=== PATIENT | female | born 2000 | race Hispanic/Latino ===

== ENCOUNTER 2023-08-24 18:16 | Inpatient (IN) | payer OTHER, SELFPAY ==
--- OUTSIDE RECORDS SUMMARY | 2023-08-24 18:19 | XMS REPORT | Continuity of Care Document ---
:2000 Author Organization [facility] t Address [address] [place] [address] Care Team Providers Name Role Phone Ton ELLIOTT, [facility] Primary Care Physician [phone] Problems This patient has no known problems. Allergies, Adverse Reactions, Alerts This patient has no known allergies or adverse reactions. Medications Ordered Filled Start Stop Current Ordering Indication Dosage Frequency Signature Comments Components Source Medication Medication Date Date Medication? Clinician (SIG) Name Name Dose 2021-0 No Unknown 2-14 00:00: 00 mupirocin 2 2020-0 No 1% % topical 8-30 ointment 00:00: 00 Augmentin 2020-0 No 1mg 875 mg-125 8-30 mg tablet 00:00: 00 Flagyl 500 2020-0 No 1mg mg tablet 5-03 00:00: 00 Flagyl 500 2019-0 No 1mg mg tablet 9-15 00:00: 00 metronidazo 2020-0 No 1mg le 500 mg 7-01 tablet 00:00: 00 Dose 2019-0 No Unknown 8-19 00:00: 00 Macrobid 2019-0 No 1mg 100 mg 8-06 capsule 00:00: 00 Vital Signs Vital Name Observation Time Observation Value Comments Source BP Systolic 2022-07-15 09:58:00 121 mm[Hg] BP Diastolic 2022-07-15 09:58:00 77 mm[Hg] Weight Measured 2022-07-15 09:58:00 168.80 pounds Height Measured 2022-07-15 09:58:00 60.71 inches Body Temperature 2022-07-15 09:58:00 98.30 degrees Heart Rate 2022-07-15 09:58:00 86.00 /min Respiratory Rate 2022-07-15 09:58:00 18.00 /min BP Systolic 2021-11-20 17:01:00 120 mm[Hg] BP Diastolic 2021-11-20 17:01:00 72 mm[Hg] Weight Measured 2021-11-20 17:01:00 161.40 pounds Height Measured 2021-11-20 17:01:00 60.71 inches Body Temperature 2021-11-20 17:01:00 98.30 degrees Heart Rate 2021-11-20 17:01:00 74.00 /min Respiratory Rate 2021-11-20 17:01:00 16.00 /min BP Systolic 2021-11-20 16:51:00 120 mm[Hg] BP Diastolic 2021-11-20 16:51:00 72 mm[Hg] Weight Measured 2021-11-20 16:51:00 161.40 pounds Height Measured 2021-11-20 16:51:00 60.71 inches Body Temperature 2021-11-20 16:51:00 98.30 degrees Heart Rate 2021-11-20 16:51:00 74.00 /min Respiratory Rate 2021-11-20 16:51:00 16.00 /min BP Systolic 2021-07-11 11:28:00 120 mm[Hg] BP Diastolic 2021-07-11 11:28:00 71 mm[Hg] Weight Measured 2021-07-11 11:28:00 161.20 pounds Height Measured 2021-07-11 11:28:00 60.71 inches Body Temperature 2021-07-11 11:28:00 98.20 degrees Heart Rate 2021-07-11 11:28:00 77.00 /min Respiratory Rate 2021-07-11 11:28:00 21.00 /min BP Systolic 2021-06-09 14:31:00 121 mm[Hg] BP Diastolic 2021-06-09 14:31:00 65 mm[Hg] Weight Measured 2021-06-09 14:31:00 158.60 pounds Height Measured 2021-06-09 14:31:00 60.71 inches Body Temperature 2021-06-09 14:31:00 98.20 degrees Heart Rate 2021-06-09 14:31:00 69.00 /min Respiratory Rate 2021-06-09 14:31:00 BP Systolic 2021-02-06 14:20:00 119 mm[Hg] BP Diastolic 2021-02-06 14:20:00 77 mm[Hg] Weight Measured 2021-02-06 14:20:00 160.60 pounds Height Measured 2021-02-06 14:20:00 60.71 inches Body Temperature 2021-02-06 14:20:00 98.40 degrees Heart Rate 2021-02-06 14:20:00 76.00 /min Respiratory Rate 2021-02-06 14:20:00 17.00 /min BP Systolic 2020-10-21 13:30:00 102 mm[Hg] BP Diastolic 2020-10-21 13:30:00 65 mm[Hg] Weight Measured 2020-10-21 13:30:00 162.80 pounds Height Measured 2020-10-21 13:30:00 60.71 inches Body Temperature 2020-10-21 13:30:00 99.80 degrees Heart Rate 2020-10-21 13:30:00 87.00 /min Respiratory Rate 2020-10-21 13:30:00 BP Systolic 2020-07-16 16:24:00 124 mm[Hg] BP Diastolic 2020-07-16 16:24:00 73 mm[Hg] Weight Measured 2020-07-16 16:24:00 167.80 pounds Height Measured 2020-07-16 16:24:00 60.71 inches Body Temperature 2020-07-16 16:24:00 98.40 degrees Heart Rate 2020-07-16 16:24:00 88.00 /min Respiratory Rate 2020-07-16 16:24:00 16.00 /min BP Systolic 2020-06-25 11:02:00 127 mm[Hg] BP Diastolic 2020-06-25 11:02:00 75 mm[Hg] Weight Measured 2020-06-25 11:02:00 167.20 pounds Height Measured 2020-06-25 11:02:00 60.71 inches Body Temperature 2020-06-25 11:02:00 98.80 degrees Heart Rate 2020-06-25 11:02:00 81.00 /min Respiratory Rate 2020-06-25 11:02:00 16.00 /min Body Temperature 2020-05-13 17:41:00 98.30 degrees Heart Rate 2020-05-13 17:41:00 82.00 /min Respiratory Rate 2020-05-13 17:41:00 16.00 /min BP Systolic 2020-05-13 17:41:00 117 mm[Hg] BP Diastolic 2020-05-13 17:41:00 79 mm[Hg] Weight Measured 2020-05-13 17:41:00 162.40 pounds Height Measured 2020-05-13 17:41:00 60.71 inches Procedures This patient has no known procedures. Plan of Care Planned Activity Planned Date Details Comments Source Goal Plan of Care Note [code = 25407-7] Goal Plan of Care Note [code = 53791-3] Goal Plan of Care Note [code = 00741-1] Goal Plan of Care Note [code = 22353-3] Goal Plan of Care Note [code = 45094-5] Goal Plan of Care Note [code = 55614-4] Goal Plan of Care Note [code = 02233-7] Goal Plan of Care Note [code = 97474-4] Goal Plan of Care Note [code = 89467-6] Goal Plan of Care Note [code = 75270-2] Goal Plan of Care Note [code = 91724-1] Goal Plan of Care Note [code = 28534-5] Goal Plan of Care Note [code = 83668-7] Goal Plan of Care Note [code = 72781-5] Goal Plan of Care Note [code = 79618-7] Goal Plan of Care Note [code = 47739-2] Encounters Start End Encounter Admission Attending Care Care Encounter Source Date/Time Date/Time Type Type Clinicians Facility Department ID 2023-08-23 2023-08-23 Outpatient SFA SFA [id number] Minor 09:09:55 09:09:55 1113 F Shawn 2023-06-09 2023-06-09 Outpatient SFA SFA [id number] Minor 09:16:44 09:16:44 0830 F Shawn 2022-11-06 2022-11-06 Outpatient SFA SFA [id number] Minor 10:42:01 10:42:01 0127 F Shawn 2022-07-15 2022-07-15 Outpatient SFA SFA [id number] Minor 09:34:26 09:34:26 1005 F [place] 2022-07-15 2022-07-15 Outpatient [id number] 00:00:00 00:00:00 Visit [id number] Results Test Description Test Time Test Comments Results Result Comments Source VAGINAL PATHOGENS DNA PANEL 2022-11-07 14:55:18 Test Item Value Reference Range Interpretation Comme nts LISA SPECIES (test code NEGATIVE NEGATIVE = ) G. VAGINALIS (test code = POSITIVE NEGATIVE A ) T. VAGINALIS (test code = NEGATIVE NEGATIVE N ote: The BD Affirm VPIII Microbial ) Identification Testis a DNA probe test intended for e in the detectionand identification of Lisa species, Gardnerellavagi nalis and Trichomonas vaginalis nucle ic acid. UNLESS OTHERWISE INDIC ATED, ALL TESTING PERFORMED [facility] PATHOLOGY [facility], [facility]. [address] [place] [address] 4 MARINE TECHNICIAN: QIANA NEAL M.D. CLIA NUMBER [id number] [facility] [place]. [id number] VAGINAL PATHOGENS DNA [id number] 18:33:54 Test Item Value Reference Range Interpretation Comments LISA SPECIES (test NEGATIVE NEGATIVE code = ) G. VAGINALIS (test NEGATIVE NEGATIVE code = ) T. VAGINALIS (test NEGATIVE NEGATIVE UNLESS O THERWISE code = ) INDICATED, ALL TESTING PERFORMED [facility] PATHOLOGY [facility], [place] [address] 4 LABORATORY DIRE CTOR: QIANA NEAL M.D. CLIA NUMBER [id number] [facility] [place] [id number] PAP TEST, THINPREP, [id number] 14:43:17 Test Item Value Reference Range Interpretation Comments SOURCE: (test Cervical/Endo code = 8001) cervical SLIDES: (test 1 code = 8011) LMP: (test code = 2020 80) SPECIMEN (NOTE) Satisfactory f or ADEQUACY: (test evaluation. Endocervical code = 07137) cells/transfor mation zone component present. INTERPRETATION: NILM/NO (test code = EPITH. --------- 01967) ABNORMALITY;S -------- EE BELOW NEGATIVE FO R INTRAEPITHELIAL LESION OR MALIGNANCY ( NILM) --------- --------- --------- - SOCIAL HUMAN SERVICES ASSISTANTS: Socorro Mckeon (test code = Sanchez,CT(ASCP) 8101) IAC LOCATION: (test (NOTE) Specimens pr ocessed and code = 08648) [facility] [address] [place] [address], , CLIA: [id number] CPT: (test code = (NOTE) 18187 UNLE SS OTHERWISE 8140) INDICATED, COMP UTER AIDED AND CYTOTECHNOLOGIS T SCREENING PERFO RMED. The Pap test is a s creening test with an in herent, but low probabi lity of error. Your pat ient should be remin ded to consult you imm ediately if she experien paula any suspicious sig ns or symptoms, regar dless of her Pap test re sult. An alternate repor t format containing imag es or consolidated pr ior Pap history is mj stanley as applicable. HPV HIGH IF ABNORMAL [id number] 14:43:17 Test Item Value Reference Range Interpretation Comments HPV HIGH IF CRITERIA NOT MET UNLESS OTH ERWISE ABNORMAL THINPREP INDICATED, ALL (test code = TEST[place] [address]) ATCLINICAL PATH [facility], [facility]. [address] [place] [address] [facility] DIRECTOR: QIANA MYRICK M.D. CLIA NUMBER [id number] CAP ACCREDITATION N O. [id number] 03:40:30 Test Item Value Reference Range Interpretation Comments RPR RESULT (test code = NON-REACTIVE NON-REACTIVE 3501) RPR TITER (test code = 3500) NOT INDIC. TITER NOT INDIC. HIV 1/2 4TH GEN, RFLX [id number] 03:14:02 Test Item Value Reference Range Interpretation Comments HIV 1/2 4TH GEN, RFLX CONF (test NON-REACTIVE NON-REACTIVE code = 3514) HEPATITIS PANEL, [id number] 03:14:02 Test Item Value Reference Range Interpretation Comments HEPATITIS A IgM (test NON-REACTIVE NON-REACTIVE code = 79332) HEPATITIS B CORE IgM NON-REACTIVE NON-REACTIVE (test code = 4644) HEPATITIS B SURF AG NON-REACTIVE NON-REACTIVE (test code = 2739) HEPATITIS C ANTIBODY NON-REACTIVE NON-REACTIVE (test code = 4675) INTERPRETATION (NOTE) Hepatitis A HEPATITIS A: (test serology shows no code = 2552) evidence of acu te hepatitis A. INTERPRETATION (NOTE) Hepatitis B HEPATITIS B: (test serology shows no code = 17029) evidence of ac sleetmute hepatitis B and no indication of exposure to hepatitis B vir us in the previous si xto eight months. INTERPRETATION (NOTE) Hepatitis C HEPATITIS C: (test serology shows no code = 07653) evidence of ex posure to hepatitisC v irus at this time. I t can take up to 12 m onths after exposure tothe hepatitis C vir us for antibodies to become detectab le in the blood in ce rtain patients. UNLES S OTHERWISE INDIC ATED, ALL TESTING PERFORMED [facility] PATHOLOGY LABORATORIES, [facility] [address] [place] [id number] [place] [address] DIRECTOR: QIANA MYRICK M.D. CLIA NUMBER [id number] [place] [id number] VAGINAL PATHOGENS DNA [id number] 16:16:30 Test Item Value Reference Range Interpretation Comments LISA SPECIES (test NEGATIVE NEGATIVE code = ) G. VAGINALIS (test POSITIVE NEGATIVE A code = ) T. VAGINALIS (test NEGATIVE NEGATIVE UNLESS O THERWISE code = ) INDICATED, ALL TESTING PERFORMED [facility], [facility]. [address] [place] [address] 4 LABORATORY DIRE CTOR: QIANA NEAL M.D. CLIA NUMBER [id number] CAP ACCREDITATI ON [place]. VAGINAL PATHOGENS DNA [id number] 00:00:00 Test Item Value Reference Range Interpretation Comments LISA SPECIES (test code = ) NEGATIVE G. VAGINALIS (test code = 73017) POSITIVE T. VAGINALIS (test code = ) NEGATIVE VAGINAL PATHOGENS DNA [id number] 00:00:00 Test Item Value Reference Range Interpretation Comments LISA SPECIES (test code = ) NEGATIVE G. VAGINALIS (test code = 39466) POSITIVE T. VAGINALIS (test code = 37232) NEGATIVE VAGINAL PATHOGENS DNA [id number] 00:00:00 Test Item Value Reference Range Interpretation Comments LISA SPECIES (test code = ) NEGATIVE G. VAGINALIS (test code = 83284) POSITIVE T. VAGINALIS (test code = 04987) NEGATIVE VAGINAL PATHOGENS DNA [id number] 00:00:00 Test Item Value Reference Range Interpretation Comments LISA SPECIES (test code = ) NEGATIVE G. VAGINALIS (test code = 31433) POSITIVE T. VAGINALIS (test code = 70146) NEGATIVE HEMOGLOBIN [id number] 00:00:00 Test Item Value Reference Range Interpretation Comments HEMOGLOBIN A1c (test code = 54111) 5.4 % HEMOGLOBIN [id number] 00:00:00 Test Item Value Reference Range Interpretation Comments HEMOGLOBIN A1c (test code = 33129) 5.4 % HEMOGLOBIN [id number] 00:00:00 Test Item Value Reference Range Interpretation Comments HEMOGLOBIN A1c (test code = 23447) 5.4 % CBC W/AUTO [id number] 00:00:00 Test Item Value Reference Range Interpretation Comments WBC (test code = 1001) 9.5 K/UL RBC (test code = 1002) 4.63 M/UL HEMOGLOBIN (test code = 1003) 13.7 G/DL HEMATOCRIT (test code = 1004) 39.9 % MCV (test code = 1005) 86.2 fL MCH (test code = 1006) 29.6 PG MCHC (test code = 1007) 34.3 G/DL RDW (test code = 1038) 12.7 % NEUTROPHILS (test code = 1008) 55.2 % LYMPHOCYTES (test code = 1010) 37.5 % MONOCYTES (test code = 1011) 6.3 % EOSINOPHILS (test code = 1012) 0.3 % BASOPHILS (test code = 1013) 0.7 % PLATELET COUNT (test code = 1015) 217 K/UL CBC W/AUTO [id number] 00:00:00 Test Item Value Reference Range Interpretation Comments WBC (test code = 1001) 9.5 K/UL RBC (test code = 1002) 4.63 M/UL HEMOGLOBIN (test code = 1003) 13.7 G/DL HEMATOCRIT (test code = 1004) 39.9 % MCV (test code = 1005) 86.2 fL MCH (test code = 1006) 29.6 PG MCHC (test code = 1007) 34.3 G/DL RDW (test code = 1038) 12.7 % NEUTROPHILS (test code = 1008) 55.2 % LYMPHOCYTES (test code = 1010) 37.5 % MONOCYTES (test code = 1011) 6.3 % EOSINOPHILS (test code = 1012) 0.3 % BASOPHILS (test code = 1013) 0.7 % PLATELET COUNT (test code = 1015) 217 K/UL CBC W/AUTO [id number] 00:00:00 Test Item Value Reference Range Interpretation Comments WBC (test code = 1001) 9.5 K/UL RBC (test code = 1002) 4.63 M/UL HEMOGLOBIN (test code = 1003) 13.7 G/DL HEMATOCRIT (test code = 1004) 39.9 % MCV (test code = 1005) 86.2 fL MCH (test code = 1006) 29.6 PG MCHC (test code = 1007) 34.3 G/DL RDW (test code = 1038) 12.7 % NEUTROPHILS (test code = 1008) 55.2 % LYMPHOCYTES (test code = 1010) 37.5 % MONOCYTES (test code = 1011) 6.3 % EOSINOPHILS (test code = 1012) 0.3 % BASOPHILS (test code = 1013) 0.7 % PLATELET COUNT (test code = 1015) 217 K/UL COMPREHENSIVE METABOLIC [id number] 00:00:00 Test Item Value Reference Range Interpretation Comments GLUCOSE (test code = 2217) 94 MG/DL BUN (test code = 2208) 13 MG/DL CREATININE (test code = 2214) 0.72 MG/DL eGFR AMER. (test code 140 ML/MIN/1.73 = 22941) eGFR NON- AMER. (test 121 ML/MIN/1.73 code = 15142) CALC BUN/CREAT (test code = 18 RATIO 2235) SODIUM (test code = 2231) 140 MEQ/L POTASSIUM (test code = 2228) 4.0 MEQ/L CHLORIDE (test code = 2215) 103 MEQ/L CARBON DIOXIDE (test code = 25 MEQ/L 2206) CALCIUM (test code = 2209) 10.1 MG/DL PROTEIN, TOTAL (test code = 8.1 G/DL 222) ALBUMIN (test code = 2201) 4.9 G/DL CALC GLOBULIN (test code = 3.2 G/DL 2240) CALC A/G RATIO (test code = 1.5 RATIO 2234) BILIRUBIN, TOTAL (test code = 0.3 MG/DL 2206) ALKALINE PHOSPHATASE (test 90 U/L code = 220) AST (test code = 2218) 26 U/L ALT (test code = 2219) 22 U/L COMPREHENSIVE METABOLIC [id number] 00:00:00 Test Item Value Reference Range Interpretation Comments GLUCOSE (test code = 2217) 94 MG/DL BUN (test code = 2208) 13 MG/DL CREATININE (test code = 2214) 0.72 MG/DL eGFR AMER. (test code 140 ML/MIN/1.73 = 65221) eGFR NON- AMER. (test 121 ML/MIN/1.73 code = 07955) CALC BUN/CREAT (test code = 18 RATIO 2235) SODIUM (test code = 2231) 140 MEQ/L POTASSIUM (test code = 2228) 4.0 MEQ/L CHLORIDE (test code = 2215) 103 MEQ/L CARBON DIOXIDE (test code = 25 MEQ/L 220) CALCIUM (test code = 2209) 10.1 MG/DL PROTEIN, TOTAL (test code = 8.1 G/DL 2228) ALBUMIN (test code = 2201) 4.9 G/DL CALC GLOBULIN (test code = 3.2 G/DL 2240) CALC A/G RATIO (test code = 1.5 RATIO 2234) BILIRUBIN, TOTAL (test code = 0.3 MG/DL 2206) ALKALINE PHOSPHATASE (test 90 U/L code = 2204) AST (test code = 2218) 26 U/L ALT (test code = 2219) 22 U/L LIPID [id number] 00:00:00 Test Item Value Reference Range Interpretation Comments CHOLESTEROL (test code = 2210) 206 MG/DL TRIGLYCERIDES (test code = 2232) 136 MG/DL HDL CHOLESTEROL (test code = 2220) 43 MG/DL CALC LDL CHOL (test code = 2237) 137 MG/DL RISK RATIO LDL/HDL (test code = 3.19 RATIO 2238) LIPID [id number] 00:00:00 Test Item Value Reference Range Interpretation Comments CHOLESTEROL (test code = 2210) 206 MG/DL TRIGLYCERIDES (test code = 2232) 136 MG/DL HDL CHOLESTEROL (test code = 2220) 43 MG/DL CALC LDL CHOL (test code = 2237) 137 MG/DL RISK RATIO LDL/HDL (test code = 3.19 RATIO 2238) VAGINAL PATHOGENS DNA [id number] 00:00:00 Test Item Value Reference Range Interpretation Comments LISA SPECIES (test code = 52956) POSITIVE G. VAGINALIS (test code = 03654) NEGATIVE T. VAGINALIS (test code = 98973) NEGATIVE VAGINAL PATHOGENS DNA [id number] 00:00:00 Test Item Value Reference Range Interpretation Comments LISA SPECIES (test code = 63265) POSITIVE G. VAGINALIS (test code = 75894) NEGATIVE T. VAGINALIS (test code = 40486) NEGATIVE VAGINAL PATHOGENS DNA [id number] 00:00:00 Test Item Value Reference Range Interpretation Comments LISA SPECIES (test code = 60259) NEGATIVE G. VAGINALIS (test code = 79162) POSITIVE T. VAGINALIS (test code = 03231) NEGATIVE VAGINAL PATHOGENS DNA [id number] 00:00:00 Test Item Value Reference Range Interpretation Comments LISA SPECIES (test code = 82428) NEGATIVE G. VAGINALIS (test code = 37104) POSITIVE T. VAGINALIS (test code = 53132) NEGATIVE GC AND CHLAMYDIA, AMPLIFIED, [id number] 00:00:00 Test Item Value Reference Range Interpretation Comments GONORRHEA, TMA (test code = 10995) NEGATIVE CHLAMYDIA, TMA (test code = 97625) NEGATIVE GC AND CHLAMYDIA, AMPLIFIED, [id number] 00:00:00 Test Item Value Reference Range Interpretation Comments GONORRHEA, TMA (test code = 47255) NEGATIVE CHLAMYDIA, TMA (test code = 56943) NEGATIVE
[2023-08-24] MEDS ORDERED: ONDANSETRON 4 MG/2 ML VIAL ONE (18:52)
[2023-08-24 18:59] LABS: Absolute Lymphocytes (CBC) 1.5 K/uL (0.7-4.9); Hematocrit 33.8 % (36.0-45.0); Lymphocytes % 8.8 % (15.3-44.8); MCV 85.9 fL (80-100); MPV 8.9 fL (7.6-11.3); Platelets 188 thou/uL (152-406); RBC Red Blood Cell Count 3.93 M/uL (3.86-4.86)
[2023-08-24 19:31] LABS: Albumin 3.2 g/dL (3.4-5.0); Bilirubin Total 0.8 mg/dL (0.2-1.0); Potassium 3.1 mEq/L (3.5-5.1); Protein, Total 8.4 g/dL (6.4-8.2)
[2023-08-24] MEDS ORDERED: NA CHLORIDE 0.9% 250 ML ONE (19:37)
[2023-08-24] MEDS ORDERED: ACETAMINOPHEN 500 MG TAB ONE (19:38)
[2023-08-24 21:06] LABS: Specific Gravity 1.016 (1.005-1.030)
[2023-08-24 21:08] LABS: Specific Gravity 1.012 (1.005-1.030); Urine Bacteria None Seen /HPF (<20); Urine Bilirubin 1+ (Negative); Urine Blood Negative (Negative); Urine Clarity Turbid (Clear); Urine Color Dark-Yellow (Yellow); Urine Glucose NEGATIVE (Negative); Urine Mucus Slight /HPF (None Seen); Urine Protein 1+ (Negative); Urine RBC <5 /HPF (None Seen); Urine Urobilinogen 2+ (Normal)
[2023-08-24] MEDS ORDERED: IBUPROFEN 400 MG TAB ONE (21:26)
[2023-08-24] MEDS ORDERED: POTASSIUM 25 MEQ EFFERV TAB ONE (21:27)
--- NOTE | 2023-08-24 21:44 | RAD REPORT ---
EXAM DESCRIPTION: CT - Stone Protocol - 08/24/2023 9:13 pm CLINICAL HISTORY: FLANK PAIN COMPARISON: No comparisons TECHNIQUE: Thin cut axial CT imaging of the abdomen and pelvis was performed without IV contrast. Mu ltiplanar reformats were generated and reviewed. All CT scans are performed using dose optimization technique as appropriate and may include automated exposure control or mA/KV adjustment according to patient size. FINDINGS: No suspicious findings in the lung bases. The liver, spleen,, adrenal glands, and pancreas show no suspicious findings. Gallbladder and biliary tree are also without suspicious finding. Asymmetric right renal enlargement, with prominent perinephric fat stranding. Within limits of noncon trast technique, no appreciable fluid collections are noted. No evidence of radiopaque calculi. Mild right hydroureteronephrosis with gradual tapering of the ureter at the level of its distal segment. N o radiopaque calculi or hydroureteronephrosis on the left. No dilated bowel loops or bowel wall thickening. No free air, free fluid or inflammatory stranding. N o hernia, mass or bulky lymphadenopathy. Uterus is retroflexed. IUD in place. The urinary bladder is without significant finding. No suspicious bony findings. IMPRESSION: Asymmetric enlargement of the right kidney, adjacent perinephric inflammatory changes, w ith mild right hydroureteronephrosis. No evidence of radiopaque calculi. Findings suggest acute pyelo nephritis. The findings were communicated to Dr Jh Benedict on 08/24/2023 at 21:38 hours.
[2023-08-24] MEDS ORDERED: CEFTRIAXONE 1000 MG/VIAL ONE (21:55)
--- NOTE | 2023-08-24 21:55 | ER ---
Nurse's Notes [facility] Name: Nyla Rogers Age: 23 yrs Sex: Female : 2000 Arrival Date: 08/24/2023 Time: 18:16 Bed 5 Private MD: Diagnosis: Pyelonephritis acute-right Presentation: 08/24 18:28 Chief complaint: Patient states: she was diagnosed with a UTI yesterday by her PCP, and ap3 started antibiotics. patient reports continued fever, chills, and is also reporting lower back pain and nausea. patient states her pain is a 8/10. Coronavirus screen: At this time, the client does not indicate any symptoms associated with coronavirus-19. Ebola Screen: No symptoms or risks identified at this time. Initial Sepsis Screen: Does the patient meet any 2 criteria? HR > 90 bpm. Does the patient have a suspected source of infection? Yes: Dysuria/Frequency/Urgency/UTI. Risk Assessment: Do you want to hurt yourself or someone else? Patient reports no desire to harm self or others. Onset of symptoms was August 22, 2023. 18:28 Method Of Arrival: Ambulatory ap3 18:28 Acuity: ROCHELLE 3 ap3 Triage Assessment: 18:34 General: Appears ill, Reports chills for fever for feeling ill for fatigue for. ap3 General: Behavior is calm, cooperative, appropriate for age. Pain: Complains of pain in low back area Pain currently is 8 out of 10 on a pain scale. Neuro: Level of Consciousness is awake, alert, obeys commands, Oriented to person, place, time, situation. Cardiovascular: Patient's skin is warm and dry. Respiratory: Airway is patent Respiratory effort is even, unlabored, Respiratory pattern is regular, symmetrical. GI: Reports nausea. : Reports recent UTI dx. 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 - Social history:: Smoking status: Patient denies any tobacco usage or history of. Screenin:35 Abuse screen: Denies threats or abuse. Nutritional screening: No deficits noted. ap3 Tuberculosis screening: No symptoms or risk factors identified. 18:55 [facility] ED Fall Risk Assessment (Adult) Score/Fall Risk Level 0 - 2 = Low Risk hb Oriented to surroundings, Maintained a safe environment, Educated pt \T\ family on fall prevention, incl call for assistance when getting out of bed. Assessment: 18:45 General: Appears ill, Behavior is calm, cooperative, appropriate for age. Pain: ko1 Complains of pain in back and low back area. Neuro: No deficits noted. Cardiovascular: Rhythm is sinus tachycardia. Respiratory: No deficits noted. GI: Reports nausea, vomiting. GI: Abdomen is flat, non-distended. : Reports pain flank(s). EENT: No deficits noted. Derm: No deficits noted. Musculoskeletal: No deficits noted. 19:25 General: Appears uncomfortable, Behavior is calm, cooperative. Pain: Complains of pain ha1 in low back area Pain does not radiate. Pain currently is 5 out of 10 on a pain scale. Quality of pain is described as pressure. Neuro: Level of Consciousness is awake, alert, obeys commands, Oriented to person, place, time, situation. Cardiovascular: Capillary refill < 3 seconds Patient's skin is warm and dry. Rhythm is sinus tachycardia. Respiratory: Airway is patent Trachea midline Respiratory effort is even, unlabored, Respiratory pattern is regular, symmetrical. GI: Abdomen is flat, non-distended, Abd is soft and non tender X 4 quads. Reports nausea, vomiting. 20:52 Reassessment: Patient and/or family updated on plan of care and expected duration. Pain vc1 level reassessed. Patient is alert, oriented x 3, equal unlabored respirations, skin warm/dry/pink. Pt states she thinks fever broke because she is sweating Patient states feeling better. Patient states symptoms have improved. 21:32 Reassessment: Patient and/or family updated on plan of care and expected duration. Pain ha1 level reassessed. Patient is alert, oriented x 3, equal unlabored respirations, skin warm/dry/pink. 22:35 Reassessment: Patient and/or family updated on plan of care and expected duration. Pain ha1 level reassessed. Patient is alert, oriented x 3, equal unlabored respirations, skin warm/dry/pink. Patient states feeling better. Patient states symptoms have improved. 22:39 Reassessment: report given to CONNIE Oliver. ha1 Vital Signs: 18:28 BP 120 / 68; Pulse 121; Resp 19; Temp 99.6; Pulse Ox 100% on R/A; Weight 76.2 kg; Pain ap3 8/10; 18:57 BP 106 / 58; Pulse 119; Resp 16; Pulse Ox 100% ; ko1 19:10 BP 118 / 96; Pulse 124; Resp 19 S; Temp 103.2(O); Pulse Ox 99% on R/A; ha1 20:52 BP 116 / 55; Pulse 99; Resp 19; Temp 100.8(O); Pulse Ox 99% ; vc1 20:53 Temp 100.8; vc1 21:33 BP 102 / 68; Pulse 65; Resp 18 S; Pulse Ox 98% on R/A; ha1 22:34 BP 103 / 59; Pulse 64; Resp 15; Temp 99.1(O); Pulse Ox 98% on R/A; ha1 18:28 Pain Scale: Adult ap3 ED Course: 18:19 Patient arrived in ED. im 18:20 Luca Cortez PA is PHCP. cp 18:20 Juan Claudio MD is Attending Physician. cp 18:28 Tanisha Key, RN is Primary Nurse. ko1 18:32 Triage completed. ap3 18:35 Arm band placed on right wrist. ap3 18:35 Patient has correct armband on for positive identification. Bed in low position. Call ap3 light in reach. 18:45 Pulse ox on. NIBP on. Door closed. Noise minimized. Lights dimmed. Warm blanket given. ko1 18:48 Inserted saline lock: 22 gauge in right antecubital area, using aseptic technique. ko1 Blood collected. 18:55 Provided Education on: tests, result times. hb 18:57 Lactate w/ 2H reflex if indic. Sent. ko1 18:57 CBC with Diff Sent. ko1 18:57 CMP Sent. ko1 18:57 Lipase Sent. ko1 19:49 EKG done, by ED staff, reviewed by Luca DRAPER. jw7 20:50 Test, Urine Sent. vc1 20:50 Urinalysis w/ reflexes Sent. vc1 20:54 Primary Nurse role handed off by Tanisha Key, RN as6 21:14 CT Stone Protocol: right flank pain In Process Unspecified. EDMS 21:53 Rhoda Sylvester MD is Hospitalizing Provider. cp 22:27 Blood Culture Adult (2) Sent. jw7 22:42 No provider procedures requiring assistance completed. Patient admitted, IV remains in ha1 place. Administered Medications: 19:07 Discontinued: ns 0.9% 1000 ml IV at 1 bolus Per protocol; 1000 mL bolus cp 18:55 Drug: Famotidine IVP 20 mg IVP once; dilute with 10 mL 0.9% NaCl; give over 2 minutes hb Route: IVP; Site: right antecubital; 21:40 Follow up: Response: No adverse reaction; Marked relief of symptoms jw7 18:55 Drug: Ondansetron IVP 4 mg IVP once; over 2 minutes Route: IVP; Site: right antecubital;hb 21:40 Follow up: Response: No adverse reaction; Marked relief of symptoms jw7 18:55 Drug: NS 0.9% IV 1000 ml IV at 1 bolus Per protocol; 1000 mL bolus Route: IV; Rate: 1 hb bolus; Site: right antecubital; 19:25 Drug: NS 0.9% IV (30 ml/kg) 30 ml/kg IV at bolus once; Sepsis Protocol Route: IV; Rate: ha1 bolus; Site: right antecubital; 19:25 Drug: Acetaminophen PO 1000 mg PO once Route: PO; ha1 20:53 Follow up: Temp 100.8; Response: Marked relief of symptoms; Temperature is decreased vc1 21:19 Drug: Ibuprofen PO 800 mg PO once Route: PO; jw7 22:27 Follow up: Response: No adverse reaction jw7 21:19 Drug: Potassium PO Effervescent Tablet 50 mEq PO once; dissolve in 4 ounces of water or jw7 juice Route: PO; 22:27 Follow up: Response: No adverse reaction jw7 22:27 Drug: Rocephin - Rocephin (cefTRIAXone) IVPB 1 grams IVPB once over 30 mins; (mix in 50 jw7 mL NS) Route: IVPB; Infused Over: 30 mins; Site: right antecubital; 22:43 Follow up: Response: No adverse reaction; IV Status: Infusion continued ha1 Medication: 18:55 VIS not applicable for this client. hb Outcome: 21:54 Decision to Hospitalize by Provider. cp 22:42 Admitted to Tele accompanied by nurse, via wheelchair, room 411, with chart, Report ha1 called to CONNIE Oliver 22:42 Condition: stable 22:42 Discharge instructions given to patient, Instructed on the need for admit, Demonstrated understanding of instructions, 22:43 Patient left the ED. ha1 Signatures: Dispatcher [employer] EDMS Luca Cortez PA PA cp Payal Chan RN RN Thao Ferrell RN RN ap3 Paco Boland RN RN as6 Norma Gee RN RN vc1 Debby Ramirez RN RN jw7 Sonia Rogers RN RN ha1 Tanisha Key RN RN ko1 Kandy Syed
--- NOTE | 2023-08-24 21:55 | EDPHYS ---
Physician Documentation [facility] Name: Nyla Rogers Age: 23 yrs Sex: Female : 2000 Arrival Date: 08/24/2023 Time: 18:16 Bed 5 Private MD: ED Physician Juan Claudio HPI: 08/24 18:40 This 23 yrs old Female presents to ER via Ambulatory with complaints of Fever, cp Low Back Pain, Vomiting, Dizziness, Flank Pain. 18:40 The patient reports fever, not measured (subjective). Onset: The symptoms/episode cp began/occurred today. 18:40 Associated signs and symptoms: Pertinent positives: abdominal pain, backache, chills, cp nausea, vomiting, Pertinent negatives: chest pain, cough, diarrhea. Severity of symptoms: in the emergency department the symptoms are unchanged despite home interventions. 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 - Social history:: Smoking status: Patient denies any tobacco usage or history of. ROS: 18:45 Constitutional: Positive for fever, poor PO intake, cp 18:45 Respiratory: Negative for cough, shortness of breath, wheezing, cp 18:45 Abdomen/GI: Positive for abdominal pain, nausea and vomiting, diarrhea, Negative for constipation, 18:45 Back: Positive for flank pain, on the right, 18:45 Cardiovascular: Negative for chest pain, palpitations, cp 18:45 Eyes: Negative for injury, pain, redness, and discharge, cp 18:45 ENT: Negative for drainage from ear(s), ear pain, sore throat, difficulty swallowing, difficulty handling secretions, 18:45 Neuro: Negative for altered mental status, weakness, 18:45 All other systems are negative, Exam: 18:50 Constitutional: The patient appears in no acute distress, alert, awake, non-toxic, well cp developed, well nourished, 18:50 Head/Face: Normocephalic, atraumatic. cp 18:50 Eyes: Periorbital structures: appear normal, Conjunctiva: normal, no exudate, no injection, Sclera: no appreciated abnormality, Lids and lashes: appear normal, bilaterally, 18:50 ENT: External ear(s): are unremarkable, Nose: is normal, Mouth: Lips: moist, Oral mucosa: pink and intact, moist, Posterior pharynx: is normal, airway is patent, no erythema, no exudate, 18:50 Neck: ROM/movement: is normal, is supple, without pain, no range of motions limitations, no meningismus, no nuchal rigidity, 18:50 Chest/axilla: Inspection: normal, 18:50 Cardiovascular: Rate: tachycardic, Rhythm: regular, 18:50 Respiratory: the patient does not display signs of respiratory distress, Respirations: normal, no use of accessory muscles, no retractions, labored breathing, is not present, intercostal retractions, are absent, Breath sounds: are clear throughout, no decreased breath sounds, no stridor, no wheezing, 18:50 Abdomen/GI: Inspection: abdomen appears normal, Bowel sounds: active, all quadrants, Palpation: soft, in all quadrants, mild abdominal tenderness, in the right lower quadrant and left lower quadrant, rebound tenderness, is not appreciated, involuntary guarding, is not appreciated, 18:50 Back: pain, that is moderate, of the low back area, ROM is painful, with all movement, 18:50 Neuro: Orientation: to person, place \T\ time. Mentation: is normal, Motor: moves all fours, strength is normal, Sensation: is normal, 19:52 ECG was reviewed by the Attending Physician. cp Vital Signs: 18:28 BP 120 / 68; Pulse 121; Resp 19; Temp 99.6; Pulse Ox 100% on R/A; Weight 76.2 kg; Pain ap3 8/10; 18:57 BP 106 / 58; Pulse 119; Resp 16; Pulse Ox 100% ; ko1 19:10 BP 118 / 96; Pulse 124; Resp 19 S; Temp 103.2(O); Pulse Ox 99% on R/A; ha1 20:52 BP 116 / 55; Pulse 99; Resp 19; Temp 100.8(O); Pulse Ox 99% ; vc1 20:53 Temp 100.8; vc1 21:33 BP 102 / 68; Pulse 65; Resp 18 S; Pulse Ox 98% on R/A; ha1 22:34 BP 103 / 59; Pulse 64; Resp 15; Temp 99.1(O); Pulse Ox 98% on R/A; ha1 18:28 Pain Scale: Adult ap3 MDM: 18:23 Patient medically screened. 21:50 Data reviewed: vital signs, nurses notes, lab test result(s), EKG, radiologic studies, cp CT scan. 21:50 Consideration of Admission/Observation Patient was admitted/placed on observation. cp Management of patient was discussed with the following: Hospitalist: Denisha Arias, SAILAJA will admit after discussion. I considered the following discharge prescriptions or medication management in the emergency department Medications were administered in the Emergency Department. See MAR. Counseling: I had a detailed discussion with the patient and/or guardian regarding the historical points, exam findings, and any diagnostic results supporting the discharge/admit diagnosis, lab results, radiology results. Response to treatment: the patient's symptoms have markedly improved after treatment. 08/24 18:36 Order name: CBC with Diff; Complete Time: 19:06 08/24 19:07 Interpretation: Normal except: WBC 16.50; HGB 11.5; HCT 33.8; ANTONY% 82.3; LYM% 8.8; NEUT cp A 13.6; MNA 1.4. 08/24 18:36 Order name: CMP; Complete Time: 19:34 08/24 19:35 Interpretation: Normal except: NA 134; K 3.1; GLUC 117; TP 8.4; ALB 3.2; GLOB 5.2; A/G cp 0.6. 08/24 18:36 Order name: Lipase; Complete Time: 19:34 08/24 18:36 Order name: Test, Urine; Complete Time: 21:08 08/24 21:08 Interpretation: Reviewed. 08/24 18:36 Order name: Urinalysis w/ reflexes; Complete Time: 21:36 08/24 18:36 Order name: Lactate w/ 2H reflex if indic.; Complete Time: 19:34 08/24 19:35 Interpretation: LAC 1.4; Reviewed. 08/24 21:13 Order name: Urine Culture EDGA 08/24 21:46 Order name: Blood Culture Adult (2) 08/24 18:36 Order name: CT Stone Protocol: right flank pain; Complete Time: 21:46 cp 08/24 21:47 Interpretation: Report reviewed. 08/24 19:38 Order name: EKG; Complete Time: 19:39 cp 08/24 18:36 Order name: IV Saline Lock; Complete Time: 18:55 cp 08/24 18:36 Order name: Labs collected and sent; Complete Time: 18:55 08/24 19:38 Order name: EKG - Nurse/Tech; Complete Time: 19:49 cp EC:52 Rate is 111 beats/min. Rhythm is regular. WI interval is normal. QRS interval is cp normal. QT interval is normal. T waves are Inverted in lead aVR. Interpreted by me. Reviewed by me. Administered Medications: 19:07 Discontinued: ns 0.9% 1000 ml IV at 1 bolus Per protocol; 1000 mL bolus cp 18:55 Drug: Famotidine IVP 20 mg IVP once; dilute with 10 mL 0.9% NaCl; give over 2 minutes hb Route: IVP; Site: right antecubital; 21:40 Follow up: Response: No adverse reaction; Marked relief of symptoms jw7 18:55 Drug: Ondansetron IVP 4 mg IVP once; over 2 minutes Route: IVP; Site: right antecubital;hb 21:40 Follow up: Response: No adverse reaction; Marked relief of symptoms jw7 18:55 Drug: NS 0.9% IV 1000 ml IV at 1 bolus Per protocol; 1000 mL bolus Route: IV; Rate: 1 hb bolus; Site: right antecubital; 19:25 Drug: NS 0.9% IV (30 ml/kg) 30 ml/kg IV at bolus once; Sepsis Protocol Route: IV; Rate: ha1 bolus; Site: right antecubital; 19:25 Drug: Acetaminophen PO 1000 mg PO once Route: PO; ha1 20:53 Follow up: Temp 100.8; Response: Marked relief of symptoms; Temperature is decreased vc1 21:19 Drug: Ibuprofen PO 800 mg PO once Route: PO; jw7 22:27 Follow up: Response: No adverse reaction jw7 21:19 Drug: Potassium PO Effervescent Tablet 50 mEq PO once; dissolve in 4 ounces of water or jw7 juice Route: PO; 22:27 Follow up: Response: No adverse reaction jw7 22:27 Drug: Rocephin - Rocephin (cefTRIAXone) IVPB 1 grams IVPB once over 30 mins; (mix in 50 jw7 mL NS) Route: IVPB; Infused Over: 30 mins; Site: right antecubital; 22:43 Follow up: Response: No adverse reaction; IV Status: Infusion continued ha1 Disposition Summary: 08/24/23 21:54 Hospitalization Ordered Notes: Hospitalization Status: Observation cp Provider: Rhoda Sylvester cp Location: Telemetry/MedSurg (observation) cp Condition: Stable cp Problem: new cp Symptoms: have improved cp Bed/Room Type: Standard cp Room Assignment: 411(08/24/23 22:17) kmf Diagnosis - Pyelonephritis acute - right cp Forms: - Medication Reconciliation Form cp - SBAR form cp - Leadership Thank You Letter cp Signatures: Dispatcher [employer] EDMS Luca Cortez PA PA cp Payal Chan RN RN Thao Ferrell RN RN ap3 Debby Ramirez RN RN jw7 Sonia Rogers RN RN ha1 Jh Benedict MD MD sp4 Becca More kmf Norma Gee RN vc1 Corrections: (The following items were deleted from the chart) 22:17 21:54 cp kmf
--- NOTE | 2023-08-24 22:13 | P.HP ---
Certification for Inpatient Patient admitted to: Observation With expected LOS: <2 Midnights Patient will require the following post-hospital care: None Practitioner: I am a practitioner with admitting privileges, knowledge of patient current condition, hospital course, and medical plan of care. Services: Services provided to patient in accordance with Admission requirements found in Title 42 Section 412.3 of the Code of Federal Regulations Patient History Date of Service: 08/24/23 Reason for admission: Pyelonephritis History of Present Illness: Ms. Rogers is a 23-year-old healthy female who presented to the emergency department with complaints of urinary symptoms, fever, chills, back pain, generally feeling unwell. She states that she started experiencing UTI symptoms about 3 days ago, saw her PCP yesterday who put her on Macrobid. She states that she still was not feeling better today so she presented here. Initially, she was tachycardic and febrile at 103.2F. Her labs are significant for WBC 16, lactate within normal limits. Her CT scan showed acute right-sided pyelonephritis with mild hydronephrosis. Blood and urine cultures were obtained in the emergency department she was started on Rocephin. She states that she is still feeling poorly. We will admit for further management of acute uncomplicated pyelonephritis. Home medications list reviewed: Yes (NA) - Past Medical/Surgical History Diabetic: No Past Medical History: Patient denies medical history Past Surgical History: Patient denies surgical history Psychosocial/ Personal History: Patient was at home with her significant other. - Family History Family History: Reviewed- Non-Contributory - Social History Smoking Status: Never smoker Alcohol use: Yes CD- Drugs: No Caffeine use: Yes Place of Residence: Home Review of Systems 10-point ROS is otherwise unremarkable General: Fever, Chills, Malaise Genitourinary: Dysuria, Frequency, Urgency Musculoskeletal: Back Pain Physical Examination - Physical Exam General: Alert, In no apparent distress HEENT: Atraumatic, EOMI, Sclerae nonicteric Neck: Supple, JVD not distended Respiratory: Clear to auscultation bilaterally, Normal air movement Cardiovascular: Regular rate/rhythm, Normal S1 S2 Gastrointestinal: Normal bowel sounds, No tenderness Musculoskeletal: No tenderness Integumentary: No rashes Neurological: Normal speech, Normal affect Urinary: Other (CVA tenderness, right) - Studies Laboratory Data (last 24 hrs) 08/24/23 08/24/23 18:50 18:50 WBC 16.50 H Hgb 11.5 L Hct 33.8 L Plt Count 188 Sodium 134 L Potassium 3.1 L BUN 11 Creatinine 0.92 Glucose 117 H Total Bilirubin 0.8 AST 18 ALT 28 Alkaline Phosphatase 68 Lipase 13 Assessment and Plan - Problems (Diagnosis) (1) Pyelonephritis Current Visit: Yes Status: Acute - Plan Patient is admitted for further management of acute uncomplicated right-sided pyelonephritis. Continue IV Rocephin and IV hydration. Blood and urine cultures obtained in the emergency department. Tylenol as needed for fever. Morphine as needed for pain. Repeat labs in AM to trend leukocytosis. Anticipate discharge tomorrow. Discharge Plan: Home Plan to discharge in: 24 Hours - Advance Directives Does patient have a Living Will: No Does patient have a Durable POA for Healthcare: No - Code Status/Comfort Care Code Status Assessed: Yes Code Status: Full Code Physician Review: Patient Assessed, Agree with Above Assessment and Plan Critical Care: No Time Spent Managing Pts Care (In Minutes): 30
[2023-08-24 23:00] VITALS: O2SAT 98; BMI 32.8
[2023-08-24] MEDS ORDERED: MORPHINE 2 MG/ML SYR IV PRN (23:02)
[2023-08-24] MEDS: NA CHLORIDE 0.9% 1,000 ML IV SCH (23:11)
[2023-08-25 04:26] LABS: Magnesium 2.1 mg/dL (1.6-2.4); Potassium 3.4 mEq/L (3.5-5.1)
[2023-08-25 04:36] LABS: Absolute Lymphocytes (CBC) 1.9 K/uL (0.7-4.9); Hematocrit 29.9 % (36.0-45.0); Lymphocytes % 15.9 % (15.3-44.8); MCV 86.6 fL (80-100); MPV 9.2 fL (7.6-11.3); Platelets 147 thou/uL (152-406); RBC Red Blood Cell Count 3.46 M/uL (3.86-4.86)
[2023-08-25] MEDS: ONDANSETRON 4 MG/2 ML VIAL IV PRN (04:42)
[2023-08-25] MEDS ORDERED: POTASSIUM CL SA 10 MEQ TAB PO ONE (05:06)
[2023-08-25] MEDS: NA CHLORIDE 0.9% 1,000 ML IV SCH ×2 (08:18→18:28)
--- NOTE | 2023-08-25 08:28 | P.PN ---
Subjective Date of Service: 08/25/23 Chief Complaint: Pyelonephritis Subjective: No new changes febrile overnight Review of Systems 10-point ROS is otherwise unremarkable Physical Examination - Vital Signs Temperature: 97.9 F Blood Pressure: 118/58 Pulse: 88 Respirations: 14 Pulse Ox (%): 100 - Physical Exam General: Alert, In no apparent distress, Oriented x3 HEENT: Atraumatic, Normocephalic Neck: Supple, 2+ carotid pulse no bruit Respiratory: Clear to auscultation bilaterally, Normal air movement Cardiovascular: No edema, Normal pulses Capillary refill: <2 Seconds Gastrointestinal: Normal bowel sounds, Other (right CVA tenderness), Tenderness (RUQ tenderness) Musculoskeletal: No clubbing, No swelling Integumentary: No rashes, No breakdown Neurological: Normal speech, Normal strength at 5/5 x4 extr - Studies Laboratory Data (last 24 hrs) 08/24/23 08/24/23 18:50 18:50 WBC 16.50 H Hgb 11.5 L Hct 33.8 L Plt Count 188 Sodium 134 L Potassium 3.1 L BUN 11 Creatinine 0.92 Glucose 117 H Total Bilirubin 0.8 AST 18 ALT 28 Alkaline Phosphatase 68 Lipase 13 Assessment And Plan - Plan - Problems (Diagnosis) (1) Pyelonephritis- Acute - Plan Patient is admitted for further management of acute uncomplicated right-sided py elonephritis. Continue IV Rocephin and IV hydration. Blood and urine cultures obtained in the emergency department. Tylenol as needed for fever. Morphine as needed for pain. Repeat labs in AM to trend leukocytosis. Anticipate discharge tomorrow. +BC, ID consulted, discussed w Pharm ABX Full code DVT Lovenox Diet regular Discharge Plan: Home Plan to discharge in: 48 Hours - Code Status/Comfort Care Code Status: Full Code Physician Review: Patient Assessed, Agree with Above Assessment and Plan Critical Care: No Time Spent Managing PTS Care (In Minutes): 35
[2023-08-25] MEDS ORDERED: KETOROLAC 30 MG/ML INJ IV PRN (08:32)
[2023-08-25] MEDS ORDERED: CEFTRIAXONE 1,000 MG in NA CHLORIDE 0.9% 50 ML IVPB SCH (09:00)
--- NOTE | 2023-08-25 10:31 | RAD REPORT ---
EXAM DESCRIPTION: CT - Abdomen Pelvis W Contrast - 08/25/2023 10:12 am CLINICAL HISTORY: ABDOMINAL/PELVIC PAIN; LUMBAR PAIN COMPARISON: Stone Protocol dated 08/24/2023 TECHNIQUE: Thin cut axial CT imaging of the abdomen and pelvis was performed following intravenous a dministration of 100 mL Isovue 300. Multiplanar reformats were generated and reviewed. All CT scans are performed using dose optimization technique as appropriate and may include automated exposure control or mA/KV adjustment according to patient size. FINDINGS: No suspicious findings in the lung bases apart from dependent right subsegmental atelectat ic changes. The liver, spleen, adrenal glands, and pancreas show no suspicious findings. Gallbladder and biliary tree are also without suspicious finding. Stable right renal enlargement. Patchy cortical areas of hypoenhancement. No appreciable fluid collec tions. Stable degree of perinephric fat stranding on the right. No suspicious enhancement on the left . No hydronephrosis or radiopaque calculi. No dilated bowel loops or bowel wall thickening. No free air, free fluid or inflammatory stranding. N o hernia, mass or bulky lymphadenopathy. IUD in place. The urinary bladder is without significant fin ding. No suspicious bony findings. IMPRESSION: Findings of acute right pyelonephritis with stable degree of right renal enlargement and perinephric fat stranding. No appreciable fluid collections.
[2023-08-25] MEDS: ACETAMINOPHEN 500 MG TAB PO PRN ×2 (11:57→20:58)
--- NOTE | 2023-08-25 17:21 | EKG ---
Test Date: 2023-08-24 Test Time: 19:46:43 Multi Site Leasing Consultant: PARK MEASUREMENT RESULTS: Intervals: Rate: 111 CO: 130 QRSD: 76 QT: 286 QTc: 388 [place]: P: 60 CO: 130 QRS: 22 T: 42 INTERPRETIVE STATEMENTS: Sinus tachycardia Otherwise normal ECG Compared to ECG 02/20/2015 20:32:53 Sinus rhythm no longer present Electronically Signed On 08-25-23 17:20:02 SCHOOL ATHLETIC DIRECTOR by Harshad Ivan
[2023-08-25] MEDS: CEFTRIAXONE 1,000 MG in NA CHLORIDE 0.9% 50 ML IVPB SCH (20:59)
[2023-08-26] MEDS: NA CHLORIDE 0.9% 1,000 ML IV SCH (05:02)
[2023-08-26 07:07] LABS: Absolute Lymphocytes (CBC) 1.6 K/uL (0.7-4.9); Hematocrit 31.7 % (36.0-45.0); Lymphocytes % 17.2 % (15.3-44.8); MCV 86.1 fL (80-100); MPV 9.4 fL (7.6-11.3); Platelets 206 thou/uL (152-406); RBC Red Blood Cell Count 3.67 M/uL (3.86-4.86)
[2023-08-26 07:27] LABS: Albumin 2.4 g/dL (3.4-5.0); Bilirubin Total 0.3 mg/dL (0.2-1.0); Magnesium 2.1 mg/dL (1.6-2.4); Potassium 3.8 mEq/L (3.5-5.1); Protein, Total 6.8 g/dL (6.4-8.2)
[2023-08-26] MEDS: CEFTRIAXONE 1,000 MG in NA CHLORIDE 0.9% 50 ML IVPB SCH ×2 (08:08→21:36)
[2023-08-26] MEDS: ONDANSETRON 4 MG/2 ML VIAL IV PRN (08:09)
--- NOTE | 2023-08-26 08:35 | P.PN ---
Subjective Date of Service: 08/26/23 Chief Complaint: Pyelonephritis Subjective: Improving no reported fever over night, reports poor appetite Review of Systems 10-point ROS is otherwise unremarkable Physical Examination - Vital Signs Temperature: 98.1 F Blood Pressure: 117/61 Pulse: 105 Respirations: 16 Pulse Ox (%): 99 - Physical Exam General: Alert, In no apparent distress HEENT: Atraumatic, Normocephalic Neck: Supple, 2+ carotid pulse no bruit Respiratory: Clear to auscultation bilaterally, Normal air movement Capillary refill: <2 Seconds Gastrointestinal: Normal bowel sounds, Tenderness (Right CVA tenderness, RUQ tenderness) Musculoskeletal: No clubbing, No swelling Integumentary: No rashes, No breakdown Neurological: Normal speech, Normal strength at 5/5 x4 extr - Studies Microbiology Data (last 24 hrs): 08/24/23 22:00 Blood - Blood Blood Culture Gram Stain - Final Assessment And Plan - Plan - Problems (Diagnosis) Pyelonephritis- Acute Bacteremia 08/26 +BC GM Neg rods, ID consulted, discussed w Pharm ABX Patient is admitted for further management of acute uncomplicated right-sided pyelonephritis. Continue IV Rocephin and IV hydration. Blood and urine cultures obtained in the emergency department. Tylenol as needed for fever. Morphine as needed for pain. Repeat labs in AM to trend leukocytosis. Anticipate discharge tomorrow. Full code DVT Lovenox Diet regular Discharge Plan: Home Plan to discharge in: 48 Hours - Code Status/Comfort Care Code Status: Full Code Physician Review: Patient Assessed, Agree with Above Assessment and Plan Critical Care: No Time Spent Managing PTS Care (In Minutes): 35
--- NOTE | 2023-08-26 08:36 | P.CNS ---
Date of Consult: 08/26/23 Reason for Consult: pyelonephritis Chief Complaint: Pyelonephritis Allergies No Known Allergies Allergy (Unverified 08/24/23 22:52) Home medications list reviewed: Yes Home Medications: NK [No Home Meds] 08/25/23 - Past Medical/Surgical History Diabetic: No -: C section Psychosocial/ Personal History: Patient was at home with her significant other. - Social History Alcohol use: Yes CD- Drugs: No Caffeine use: Yes Place of Residence: Home Review of Systems 10-point ROS is otherwise unremarkable General: Fever, Weakness Gastrointestinal: Nausea Physical Examination Temp Pulse Resp BP Pulse Ox 98.1 F 105 H 16 117/61 99 08/26/23 08:34 08/26/23 08:34 08/26/23 08:34 08/26/23 08:34 08/26/23 08:34 General: Alert, In no apparent distress, Oriented x3 HEENT: Atraumatic, Normocephalic Neck: Supple, JVD not distended Respiratory: Clear to auscultation bilaterally, Normal air movement Cardiovascular: No edema, Regular rate/rhythm Gastrointestinal: Normal bowel sounds, Soft and benign Integumentary: No rashes Neurological: Normal speech, Normal tone, Normal affect Laboratory Data - Reviewed Microbiology Data - Reviewed Imagings Data: - Reviewed Conclusions/Impression: Problem List Bacteremia Pyelonephritis Bacteremia secondary to Pyelonephritis - CT abdomen pelvis with contrast 08/25: " Findings of acute right pyelonephritis with stable degree of right renal enlargement and perinephric fat stranding. No appreciable fluid collections." - Blood cultures 08/24: Gram negative rods - Urine culture 08/24: pending - Currently on Ceftriaxone 1g IV q24h - 24 hour Tmax = 103 F - Leukocytosis resolved (WBC 16.5 -> 11.7 -> 9) Recommendations - Bacteremia/Pyelonephritis: Continue antibiotic therapy for 14 days (08/25- 09/07) - Currently on Rocephin IV, continue for now. - Depending on culture/sensitivity results, consider switch to Ciprofloxacin 500mg PO BID - Monitor WBC and fever trends. PRN acetaminophen - PRN Zofran for nausea - Pain management per primary team Case discussed with Christelle Mejia
[2023-08-26] MEDS ORDERED: POTASSIUM 25 MEQ EFFERV TAB PO ONE (09:00)
[2023-08-26] MEDS: ACETAMINOPHEN 500 MG TAB PO PRN (14:20)
[2023-08-27 08:34] LABS: Potassium 3.7 mEq/L (3.5-5.1)
[2023-08-27 08:35] LABS: Magnesium 2.1; Phosphorus 3.7 mg/dL (2.5-4.9)
[2023-08-27] MEDS: CEFTRIAXONE 1,000 MG in NA CHLORIDE 0.9% 50 ML IVPB SCH (08:41)
[2023-08-27 09:46] VITALS: BP 131/68; TEMP 97.3
== END 2023-08-27 11:51 | disposition home or self-care (01) | DRG 690 ==
LOC: ER 18:16 → 4TH 22:05 → OBSVTOIN 08-25 10:06
PROVIDERS: ADMIT Hospitalist; ATTEND Hospitalist
DX: N10 Acute pyelonephritis (principal); R78.81 Bacteremia
CPT/HCPCS: 36415; 74176; 74177; 76377; 80048; 80053; 81001; 81025; 83605; 83690; 83735; 83880; 84100; 84132; 84145; 85025; 87040; 87077; 87086; 87088; 87186; 87205; 93005; 96365; 96375; 99285; G0378; J0696; J2270; J2405; J7030; J7050; Q9967